=== PATIENT | male | born 1940 | race Caucasian/White ===

== ENCOUNTER 2019-07-03 20:15 | Inpatient (IN) | payer MEDICARE ==
--- NOTE | 2019-07-03 20:59 | RAD ---
Frontal radiograph right hip: 912 oh COMPARISON: None HISTORY: Fall, trauma, pain FINDINGS: There is an obliquely oriented fracture involving the proximal right femur. Distal fracture fragment is displaced medially by 1.9 cm. This fracture is located just inferior to the level of the lesser trochanter. IMPRESSION: Displaced obliquely oriented proximal right femoral shaft fracture.
--- NOTE | 2019-07-03 21:01 | RAD ---
Portable frontal chest radiograph: 07/03/2019 COMPARISON: 07/09/2016 HISTORY: Preoperative patient FINDINGS: Coarse increased linear interstitial density noted in the perihilar regions and both lung b ases suggesting chronic interstitial disease, similar when compared to the prior exam. No pneumothorax, pleural fluid, focal consolidation, or alveolar edema. There is a small hiatal hernia noted. There is elevation of the right hemidiaphragm and atherosclerot ic calcification of the aortic arch. IMPRESSION: Chronic findings as described above. No significant interval change.
--- NOTE | 2019-07-03 21:02 | RAD ---
Portable frontal chest radiograph: 07/03/2019 COMPARISON: None HISTORY: Injury, trauma, pain FINDINGS: There is an obliquely oriented displaced subtrochanteric fracture of the proximal right fem oral shaft. No additional fracture is evident on this exam. IMPRESSION: Proximal right femur fracture.
[2019-07-03 21:21] LABS: Hemoglobin 16.6 g/dL (14.0-18.0); Mean Corpuscular HGB CONC 33.2 g/dL (32.0-36.0); Mean Platelet Volume 7.5 fL (7.4-10.4); Platelet Count 168 thou/uL (130-400); RBC Distribution Width 11.6 % (11.5-14.5); Red Blood Cell (RBC) Count 4.89 mill/uL (4.70-6.10); White Blood Cell (WBC) Count 13.3 thou/uL (4.8-10.8)
[2019-07-03] MEDS ORDERED: Dextrose 50% Abboject 50 ML SYRINGE SLOW IVP PRN (21:22)
[2019-07-03] MEDS ORDERED: Dextrose 5% in Water 1,000 ML IV PRN (21:22)
[2019-07-03] MEDS ORDERED: hydrALAZINE 20 MG/ML VIAL SLOW IVP PRN (21:22)
[2019-07-03] MEDS ORDERED: Ondansetron PF 4 MG/2 ML Vial IVP PRN (21:22)
[2019-07-03] MEDS ORDERED: traMADol HCl 50 MG TAB PO PRN ×2 (21:25)
[2019-07-03] MEDS ORDERED: Acetaminophen 500 MG TAB PO SCH (21:30)
[2019-07-03 21:34] LABS: Albumin 3.6 g/dL (3.4-4.8)
[2019-07-03 21:35] LABS: Calcium 8.7 mg/dL (7.8-10.44); Chloride 93 mmol/L (98-107); Potassium 4.8 mmol/L (3.5-5.1); Sodium 126 mmol/L (136-145)
[2019-07-03 21:36] LABS: Globulin 3.1 g/dL (2.4-3.5); Glucose 99 mg/dL (83-110); Protein, Total 6.7 g/dL (5.8-8.1)
[2019-07-03 21:38] LABS: Carbon Dioxide 16 mmol/L (23-31)
[2019-07-03 21:39] LABS: Alkaline Phosphatase 64 U/L (40-110)
[2019-07-03 21:40] LABS: BUN (Urea Nitrogen) 8 mg/dL (8.4-25.7); Calc. Creatinine Clearance 0 mL/min (70-130); Estimated GFR-MDRD 76
[2019-07-03 21:41] LABS: AST (SGOT) 60 U/L (5-34)
[2019-07-03 21:42] LABS: ALT (SGPT) 44 U/L (8-55); Magnesium 1.9 mg/dL (1.6-2.6)
[2019-07-03 21:48] LABS: Band 3 % (5-11); Lymphocytes 6 % (21-51); MDiff Complete? YES; Monocytes 3 % (0-10); Neutrophil 88 % (42-75)
--- NOTE | 2019-07-03 21:54 | RAD ---
Frontal and lateral imaging of right femur: 07/03/2019 COMPARISON: None HISTORY: Femur fracture FINDINGS: There is an obliquely oriented displaced and angulated fracture of the proximal right femor al shaft. There is posterior displacement and angulation as well as medial displacement and angulation. IMPRESSION: Acute fracture of the right proximal femoral shaft.
[2019-07-03 21:55] LABS: Anion Gap 22 mmol/L (10-20)
[2019-07-03] MEDS ORDERED: Oxazepam 10 MG CAP PO SCH (22:00)
[2019-07-03] MEDS ORDERED: PHOS-NAK 1 PKT PACK PO SCH (22:15)
[2019-07-03 22:22] LABS: Bilirubin Negative (Negative); Blood, Urine Trace (Negative); Clarity Clear (Clear); Glucose, Urine (Dipstick) Negative (Negative); Leukocyte Negative (Negative); Nitrite Negative (Negative); Protein, Urine (Dipstick) Negative (Neg-Trace); Urobilinogen 0.2 mg/dL (Less than 2)
[2019-07-03 22:26] LABS: INR-International Normal Ratio 0.9; Prothrombin Time 12.5 SEC (12.0-14.7)
[2019-07-03 22:28] LABS: Bacteria/HPF None Seen HPF (None Seen); RBC/HPF 0-3 HPF (0-3); Squamous Epithelial None Seen HPF (0-3); WBC/HPF 0-3 HPF (0-3)
[2019-07-03 22:31] LABS: PTT 24.8 SEC (22.9-36.1)
[2019-07-04] MEDS: Sodium Chloride 0.9% 1,000 ML IV SCH ×3 (00:15→17:37)
[2019-07-04] MEDS: Acetaminophen 500 MG TAB PO SCH ×5 (00:16→23:48)
[2019-07-04] MEDS: Morphine 2 MG/ML SYRINGE SLOW IVP PRN ×2 (00:16→09:29)
[2019-07-04] MEDS: Oxazepam 10 MG CAP PO SCH ×5 (00:16→21:50)
[2019-07-04 01:08] LABS: Amphetamine Not Detected (NotDetected); Barbiturates Screen Not Detected (NotDetected); Benzodiazepine Screen Not Detected (NotDetected); Cocaine Metabolite Screen Not Detected (NotDetected); Medtox Control Line Valid? VALID (VALID); Medtox Reader # READER 4; Methadone Not Detected (NotDetected); Methamphetamine Not Detected (NotDetected); Opiate Screen Not Detected (NotDetected); Oxycodone Screen Not Detected (NotDetected); Phencyclidine (PCP) Not Detected (NotDetected); THC/Cannabinoid Screen Not Detected (NotDetected); Tricyclic Screen Not Detected (NotDetected)
--- NOTE | 2019-07-04 01:10 | HP ---
TRAUMA SURGEON: Dr. Ramirez. CONSULTING PHYSICIAN: Dr. Cardona. HISTORY OF PRESENT ILLNESS: The patient is an 78-year-old male, who presented to the emergency department via EMS after a mechanical fall outside. The patient reports he was cleaning his truck, subsequently tripped over something and fell onto his right side. He has a right proximal shaft fracture of the femur. Upon my evaluation, the patient denied anticoagulation use and he denied hitting his head or loss of consciousness. He only complained of pain over the right proximal thigh. REVIEW OF SYSTEMS: All additional 10-point review of systems negative except as indicated above. PAST MEDICAL HISTORY: The patient has a history of hypertension and chronic alcohol abuse. PAST SURGICAL HISTORY: He has had a hernia repair and spinal surgeries. SOCIAL HISTORY: The patient lives at home alone. He does not use any assistive devices to get around. He chews tobacco. He drinks alcohol daily. He denies any drug use. The patient is very dirt appearing. He reports he has help from his daughter at home and does not have difficulties taking care of himself. MEDICATIONS: The patient reports taking medications for hypertension in the morning and in the evening, but does not remember the medications. We will contact [facility] in [place] tomorrow to complete medical record. ALLERGIES: PENICILLIN. PHYSICAL EXAMINATION: VITAL SIGNS: Patient is afebrile and hemodynamically stable. He is on 2 L nasal cannula, saturating above 92% oxygen. PRIMARY SURVEY: Airway intact. Adequate breath sounds bilaterally. 2+ pulses in bilateral radials, femorals, and DPs. GCS 15. Gross motor and sensation are intact. No lacerations bruising or external bleeding. There is obvious deformity to the right proximal thigh. SECONDARY SURVEY: HEAD: Normocephalic and atraumatic. No gross palpable skull deformities or tenderness. EYES: Pupils 3 to 2, equal, round, reactive to light bilaterally. C-SPINE: No step-offs or deformities, nontender. C-collar not in place. CHEST: Nontender. No crepitus. No abrasions or ecchymosis. Equal chest movement. ABDOMEN: Soft, nontender, nondistended. PELVIS: Stable to palpation. Nontender. No abrasions or ecchymosis. RECTAL: Deferred. GENITOURINARY: Deferred. EXTREMITIES: The patient has some deformity to the right thigh. No abrasions or ecchymosis noted. 2+ pulses in bilateral radials, femorals, and DPs. BACK/SPINE: No step-offs, deformities, or tenderness to palpation of the thoracic or lumbar spine. No abrasions or ecchymosis noted. 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 Gross normal sensation x4 extremities. LABORATORY FINDINGS: White count 13.3, hemoglobin 16.6, hematocrit 50.0, platelets 168. INR 0.9. Sodium 126, potassium 4.8, chloride 93, bicarb 16, BUN 8, creatinine 0.96, glucose 99, phosphorus 3.0, magnesium 1.0. UA demonstrates no infection. Plasma alcohol is 63. DIAGNOSTIC FINDINGS: 1. X-ray of the right hip demonstrates displaced oblique oriented proximal right femoral shaft fracture. X-ray of the pelvis demonstrates proximal right femur fracture. 2. Chest x-ray demonstrates chronic findings as described above. No significant interval changes. 3. Femur x-ray on the right demonstrates acute fracture of the right proximal femoral shaft. ASSESSMENT: 1. Status post mechanical fall from standing. 2. Right proximal femoral shaft fracture. 3. Hyponatremia, likely chronic due to alcohol abuse. 4. History of hypertension and chronic alcohol abuse. PLAN: The patient will be admitted to the trauma surgical floor. He will be n.p.o. with normal saline at 100 an hour in preparation for the OR tomorrow with Dr. Cardona for fixation of his right femoral shaft fracture. He will receive both p.o. and IV pain medications. We will replace his phosphorus overnight. We will contact his pharmacy in the morning and complete his med rec. We will start his home medications as clinically indicated. Postoperatively, he will work with Physical and Occupational Therapy and likely need placement at acute rehab facility. This patient was discussed with Dr. Ramirez before this dictation. Job ID: [id number]
[2019-07-04 02:42] VITALS: BMI 16.0
[2019-07-04 06:48] LABS: #Eosinphils 0.1 thou/uL (0.0-0.7); #Lymphocytes 1.2 thou/uL (1.20-3.40); #Monocytes 0.8 thou/uL (0.11-0.59); #Neutrophils 7.9 thou/uL (1.40-6.50); %Basophils 0.2 % (0.0-1.0); %Eosinophils 0.6 % (0.0-10.0); %Lymphocytes 12.1 % (21.0-51.0); %Monocytes 8.2 % (0.0-10.0); %Neutrophils 78.9 % (42.0-75.0); Mean Corpuscular HGB CONC 34.2 g/dL (32.0-36.0); Mean Corpuscular Hemoglobin 34.2 pg (27.0-31.0); Mean Platelet Volume 7.6 fL (7.4-10.4); Platelet Count 181 thou/uL (130-400); RBC Distribution Width 11.5 % (11.5-14.5); Red Blood Cell (RBC) Count 4.37 mill/uL (4.70-6.10)
[2019-07-04 07:05] LABS: Anion Gap 17 mmol/L (10-20); BUN (Urea Nitrogen) 8 mg/dL (8.4-25.7); Calc. Creatinine Clearance 54 mL/min (70-130); Calcium 8.2 mg/dL (7.8-10.44); Carbon Dioxide 23 mmol/L (23-31); Chloride 94 mmol/L (98-107); Estimated GFR-MDRD Greater than 90; Glucose 95 mg/dL (83-110); Magnesium 1.9 mg/dL (1.6-2.6); Phosphorus 4.1 mg/dL (2.3-4.7); Potassium 5.1 mmol/L (3.5-5.1); Sodium 129 mmol/L (136-145)
[2019-07-04] MEDS ORDERED: Magnesium 2 GM/50 ML 2 GM in Premix Bag 1 BAG IVPB SCH (08:00)
[2019-07-04] MEDS ORDERED: Magnesium Sulfate 2 GM in Sodium Chloride 0.9% 100 ML IVPB SCH (08:00)
[2019-07-04] MEDS ORDERED: Senokot S 8.6-50 MG TAB PO SCH (09:00)
[2019-07-04] MEDS ORDERED: Prevnar 13-Val Conj/PF 0.5 ML SYRINGE IM ONE (09:00)
[2019-07-04] MEDS ORDERED: Multivitamin W/ Minerals 1 TAB PO SCH (09:00)
[2019-07-04] MEDS ORDERED: FLU VACC TS2019-20(65YR UP)/PF 180 MCG/0.5 ML SYRINGE IM ONE (09:00)
[2019-07-04] MEDS: Thiamine 100 MG TAB PO SCH ×2 (09:20→09:49)
[2019-07-04] MEDS: Folic Acid 1 MG TAB PO SCH (09:23)
[2019-07-04] MEDS: Famotidine 20 MG TAB PO SCH ×3 (09:23→21:50)
[2019-07-04] MEDS: Bisoprolol Fumarate/HCTZ 10 mg/6.25 mg Tablet PO SCH ×2 (09:23→09:47)
[2019-07-04] MEDS: Polyethylene Glycol 3350 17 GM Packet PO SCH (09:48)
[2019-07-04] MEDS ORDERED: PHENYLEPHRINE-NS 100 MCG/ML 10 ML SYRINGE ONE (10:03)
[2019-07-04] MEDS ORDERED: PROPOFOL 200 MG/20 ML VIAL ONE (10:03)
[2019-07-04] MEDS ORDERED: Succinylcholine Chloride 20 MG/ML 10 ml SYRINGE FS ONE ×2 (10:03→16:52)
[2019-07-04] MEDS ORDERED: EPHEDRINE 25 MG/5 ML SYRINGE ONE (10:03)
[2019-07-04] MEDS ORDERED: Dexamethasone 20 MG/5 ML VIAL ONE (10:03)
[2019-07-04] MEDS ORDERED: Ondansetron PF 4 MG/2 ML Vial ONE (10:03)
[2019-07-04] MEDS ORDERED: Lidocaine 1% PF 5 ML VIAL ONE (10:03)
[2019-07-04] MEDS ORDERED: Glycopyrrolate 0.2 MG/ML 5 ML SYRINGE ONE (10:03)
[2019-07-04] MEDS: traMADol HCl 50 MG TAB PO SCH ×2 (10:39→17:00)
[2019-07-04] MEDS ORDERED: Clindamycin/D5W 900 mg/50 ml Premix Bag ONE (12:19)
[2019-07-04] MEDS ORDERED: Fentanyl 100 MCG/2 ML VIAL ONE (12:36)
[2019-07-04] MEDS ORDERED: Phenylephrine 10 MG/ML VIAL ONE (13:24)
--- NOTE | 2019-07-04 13:31 | PRG ---
DATE OF SERVICE: 07/04/2019 SUBJECTIVE: The patient remains on the surgical floor, status post ground level fall. The patient sustained a right proximal femoral shaft fracture. The patient has been n.p.o. over midnight and is pending repair with Dr. Cardona. The patient reports he has some moderate amount of pain currently. The pain is worse with movement. OBJECTIVE: VITAL SIGNS: Temperature 98.1, pulse 57, respirations 15, SpO2 of 99% on 1 L nasal cannula, blood pressure 147/81. GENERAL: Elderly male, sitting up in hospital bed, in no acute distress. RESPIRATORY: Equal chest rise and fall. Bilateral breath sounds clear. EXTREMITIES: Moves all extremities. No deficits. Distal pulses intact. No gross edema. LABORATORY DATA: WBC 10.0, RBC 4.37, hemoglobin 15.0, hematocrit 43.8, MCV 100, MCH 34.2. Sodium 129, potassium 5.1, chloride 91, BUN 8, creatinine 0.80, estimated GFR greater than 90, glucose 95, calcium 8.2, phosphorus 3.1, magnesium 1.9. Urinalysis; negative bacteria, negative wbc's, trace blood. Serum drug screen negative. ASSESSMENT: 1. Status post mechanical fall from standing. 2. Right proximal femoral shaft fracture. 3. Hyponatremia, likely chronic due to alcohol abuse. 4. History of hypertension and chronic alcohol abuse. PLAN: Continue n.p.o. status and IV maintenance fluids, normal saline at 100 an hour. The patient is planning to go to the OR this morning. Replace electrolytes. PT and OT to evaluate and treat postop. The patient will also be started on a regular diet with [employer] Ensure b.i.d. postop. A rehab screen has been placed. The patient was examined by Dr. Teran during morning rounds. We will schedule the patient's tramadol as he is having moderate amount of pain. Continue free water restriction to 1 L a day. The patient may have unlimited Gatorade postop. Job ID: [id number]
[2019-07-04] MEDS ORDERED: Bupivacaine PF 0.5% 30 ML VIAL ONE (14:20)
[2019-07-04] MEDS ORDERED: Lidocaine 1% w/Epinephrine 1:100K 20 ML VIAL ONE (14:20)
[2019-07-04] MEDS ORDERED: Cepastat Lozenges 1 LOZ PO PRN (14:36)
[2019-07-04] MEDS ORDERED: Fleet Enema 133 ML BOT PR PRN (14:36)
[2019-07-04] MEDS ORDERED: Ondansetron PF 4 MG/2 ML Vial IVP PRN (14:36)
[2019-07-04] MEDS ORDERED: Milk Of Magnesia 30 ML UDCUP PO PRN (14:36)
[2019-07-04] MEDS ORDERED: Ondansetron ODT 4 MG TAB PO PRN (14:36)
[2019-07-04] MEDS ORDERED: Bisacodyl 10 MG SUPP PR PRN (14:36)
[2019-07-04] MEDS ORDERED: traMADol HCl 50 MG TAB PO PRN (14:36)
[2019-07-04] MEDS ORDERED: HYDROmorphone 2 MG/ML VIAL SLOW IVP PRN (14:46)
[2019-07-04] MEDS ORDERED: Promethazine HCl 25 MG/ML VIAL SLOW IVP PRN (14:46)
[2019-07-04] MEDS ORDERED: Promethazine HCl 25 MG/ML VIAL IM PRN (14:46)
[2019-07-04] MEDS ORDERED: Ondansetron HCl/PF 4 MG/2 ML Vial IVP PRN (14:46)
--- NOTE | 2019-07-04 14:55 | RAD ---
RIGHT FEMUR 2 VIEWS: INDICATION: Status post trauma and right femur injury. FINDINGS: There has been interval placement of a long cephalomedullary device transfixing the patient 's proximal right femur fracture. There are 2 separate interlocking screws involving the distal right femur. Fracture alignment is near anatomic. The hardware projects in expected position. There a re scattered vascular calcifications. There is soft tissue gas within the adjacent right hip likely related to post procedural change. There is diffuse osteopenia. IMPRESSION: Postoperative right femur. Transcribed Date/Time: 07/04/2019 2:58 PM
--- NOTE | 2019-07-04 15:07 | OP ---
DATE OF PROCEDURE: 07/04/2019 PREOPERATIVE DIAGNOSIS: Displaced spiral fracture of the right proximal femoral shaft. POSTOPERATIVE DIAGNOSIS: Displaced spiral fracture of the right proximal femoral shaft. PROCEDURE PERFORMED: Interlocking intramedullary rodding of the right femur. ANESTHESIA: General. DESCRIPTION OF PROCEDURE: The patient was given preoperative IV antibiotics, taken to the operating room, and placed in supine position on the fracture table. Satisfactory general anesthesia was performed. The patient was then placed in traction on the fracture table with all bony prominences in the right foot and ankle well-padded. C-arm verified good alignment of the spiral fracture of the right femoral shaft fracture. The lateral aspect of the right hip and thigh was then sterilely prepped and draped. A longitudinal incision was made approximately 2 inches proximal to the greater trochanter. The incision itself was 1.5 inches in length. Under fluoroscopic visualization, a guide pin was placed through the area of the greater trochanter and piriformis fossa and the fracture was reduced and a guidewire was then placed into the area of the greater trochanter, crossing the spiral fracture and into the distal shaft. Appropriate length screw was measured and a [employer]ynthes 14-mm x 420 mm in length jania was inserted through a 1.5-inch incision on the lateral aspect of the thigh using the guide, that was still attached to the jania. A guide pin was placed through the jania into the femoral neck and into the head. The lateral cortex was over-reamed and a helical blade that was 95 mm in length was inserted into the jania and into the femoral neck and head and was locked into place. Through 2 small incisions in the lateral aspect of the distal thigh, two 5.0 mm locking screws were inserted into the distal femur as well as the intramedullary jania and this again was all verified with fluoroscopy using the C-arm. This showed good placement of the helical blade, the locking screws, and the jania. The wounds were then copiously irrigated with antibiotic solution. They were closed using #2 Vicryl for the iliotibial band, 0 Vicryl for the fat and subcutaneous tissue, and the skin was closed with skin nafisa. Sterile dressing was applied. The patient was taken off the fracture table, was awakened, extubated, and transferred to recovery room in stable condition. ESTIMATED BLOOD LOSS: 100 mL. COMPLICATIONS: None. Job ID: [id number]
[2019-07-04] MEDS ORDERED: Naloxone HCl 0.4 mg/ml Vial ONE (15:30)
[2019-07-04] MEDS ORDERED: Ventilator Sedation Protocol 1 EACH FS ONE (15:34)
[2019-07-04 15:56] LABS: Actual Bicarbonate (HCO3a) 25.4 mEq/L (22-28); CO2 Tension 44.2 mmHg (35.0-45.0); O2 Tension (PaO2) 128.9 mmHg (> 60.0); pH, Arterial 7.38 (7.35-7.45)
--- NOTE | 2019-07-04 15:56 | RAD ---
XR Chest 1 View HISTORY: Respiratory failure COMPARISON: 07/03/2019 FINDINGS: There is been interval placement of an endotracheal tube tip just below the level of the cl avicular heads. No pneumothoraces or large effusions are seen. No lobar consolidation is identified. There is continued elevation of the right hemidiaphragm. Chronic parenchymal changes are again seen.
[2019-07-04 15:57] LABS: Carboxyhemoglobin (COHb) 1.7 gm% (0.0-3.0); Hemoglobin (Hb) 13.9 g/dL (14.0-18.0)
[2019-07-04 15:58] LABS: Potassium - ABG Lab 3.67 mmol/L (3.70-5.30)
[2019-07-04 15:59] LABS: Puncture Site LB
[2019-07-04] MEDS ORDERED: Midazolam HCl 2 mg/2 ml Vial ONE (16:09)
--- NOTE | 2019-07-04 16:33 | CT ---
CT BRAIN WITHOUT CONTRAST: HISTORY:Altered mental status COMPARISON:None FINDINGS: There are foci of decreased attenuation in the periventricular white matter, consistent with chronic small vessel ischemic disease. 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 No evidence of acute infarct, hemorrhage, midline shift or abnormal extra-axial fluid collections is seen. The ventricular size is appropriate and the basilar cisterns are patent. The bony calvarium is intact. The mastoid air cells are well aerated.There is mild mucosal disease in the paranasal sinuses. IMPRESSION: No CT evidence of acute intracranial process.
[2019-07-04] MEDS ORDERED: Morphine 2 MG/ML SYRINGE SLOW IVP PRN (17:02)
[2019-07-04] MEDS ORDERED: Propofol BOLUS 1,000 MG/100 ML VIAL IV PRN (17:02)
[2019-07-04] MEDS ORDERED: Fentanyl BOLUS 250 ML IVPB PRN (17:02)
[2019-07-04] MEDS ORDERED: Lorazepam 2 MG/ML VIAL SLOW IVP PRN (17:02)
[2019-07-04] MEDS ORDERED: fentaNYL Citrate/PF 2,000 MCG in Sodium Chloride 0.9% 60 ML IV SCH (17:02)
[2019-07-04] MEDS ORDERED: DISCONTINUE PREVIOUS NARCOTIC PAIN MEDICATIONS AND BENZODIAZEPINES FS SCH (17:02)
[2019-07-04] MEDS ORDERED: Propofol 1,000 MG/100 ML VIAL IV PRN (17:02)
[2019-07-04] MEDS: Clindamycin/D5W 900 MG in Premix Bag 1 BAG IVPB SCH ×2 (17:36→23:44)
[2019-07-04 19:12] LABS: CKMB 3.1 ng/mL (0-6.6)
[2019-07-04] MEDS ORDERED: cloNIDine 0.1 MG TAB PO SCH ×2 (21:00→23:30)
[2019-07-04] MEDS ORDERED: Sodium Chloride 0.9% 500 ML IV SCH (21:30)
[2019-07-04] MEDS: Senokot S 8.6-50 MG TAB PO SCH (21:50)
[2019-07-04] MEDS: Aspirin 325 MG TAB PO SCH (21:50)
[2019-07-04] MEDS ORDERED: Hydrocortisone Sod Succ/PF 100 mg/2 ml Vial IVP SCH ×2 (23:00)
--- NOTE | 2019-07-04 23:54 | PRG ---
DATE OF SERVICE: 07/04/2019 SUBJECTIVE: The patient was seen this evening postop. The patient was reintubated in the PACU for acute postoperative respiratory failure. Upon my evaluation, he is awake and alert and follows commands. He is little bit anxious and we are working to find a happy medium for his sedation. Nursing reported decreased urinary output since he has been back as well as associated hypotension. He did receive a 500 mL bolus of IV fluid at that time. Also, cortisol level was drawn. OBJECTIVE: VITAL SIGNS: The patient is afebrile. Pulse 88, respirations 18, oxygen saturation 100% on the ventilator, blood pressure 107/64. GENERAL: Elderly male, lying in CCU bed, intubated and sedated with no signs of acute distress. PULMONARY: Equal chest rise and fall. Clear breath sounds bilaterally. No signs of acute respiratory distress. ABDOMEN: Soft, nontender, and nondistended. EXTREMITIES: 2+ pulses in all extremities. Gross motor and sensation intact. No significant swelling noted. NEUROLOGIC: GCS is 11T. ASSESSMENT: 1. Status post mechanical fall from standing. 2. Right proximal femoral shaft fracture, status post repair. 3. Hyponatremia, improving. 4. Acute alcohol intoxication, resolving. 5. Postoperative respiratory failure, status post intubation. 6. History of alcohol abuse and hypertension. 7. Acute adrenal insufficiency. PLAN: Continue n.p.o. Continue normal saline at 100 an hour. Continue propofol and fentanyl drips. The patient received 100 mg of IV hydrocortisone and he will receive 50 mg q.6 hours for acute adrenal insufficiency. We will closely monitor his hemodynamics and his blood pressure and his urinary output. He may require further fluid resuscitation. If the patient is resistant to fluid resuscitation, we will complete blood work and consider other causes such as bleeding or sepsis. At this time, we will continue to monitor him closely. Job ID: [id number]
[2019-07-05] MEDS ORDERED: Sodium Chloride 0.9% 500 ML IV SCH ×2 (01:15→10:00)
[2019-07-05 04:19] LABS: Anion Gap 12 mmol/L (10-20); BUN (Urea Nitrogen) 11 mg/dL (8.4-25.7); Calc. Creatinine Clearance 52 mL/min (70-130); Calcium 7.6 mg/dL (7.8-10.44); Carbon Dioxide 23 mmol/L (23-31); Chloride 102 mmol/L (98-107); Estimated GFR-MDRD 88; Glucose 133 mg/dL (83-110); Magnesium 1.7 mg/dL (1.6-2.6); Potassium 4.4 mmol/L (3.5-5.1); Sodium 133 mmol/L (136-145)
[2019-07-05 04:20] LABS: Phosphorus 2.9 mg/dL (2.3-4.7)
[2019-07-05] MEDS: Oxazepam 10 MG CAP PO SCH ×3 (06:15→22:15)
[2019-07-05] MEDS: Acetaminophen 500 MG TAB PO SCH ×3 (06:15→17:39)
[2019-07-05] MEDS: Hydrocortisone Sod Succ/PF 100 mg/2 ml Vial IVP SCH ×4 (06:16→22:15)
[2019-07-05] MEDS: Sodium Chloride 0.9% 1,000 ML IV SCH ×3 (06:16→22:02)
[2019-07-05 06:43] LABS: Hemoglobin 12.1 g/dL (14.0-18.0); Mean Corpuscular HGB CONC 33.7 g/dL (32.0-36.0); Mean Corpuscular Hemoglobin 34.7 pg (27.0-31.0); Mean Platelet Volume 7.8 fL (7.4-10.4); Platelet Count 164 thou/uL (130-400); RBC Distribution Width 11.5 % (11.5-14.5); White Blood Cell (WBC) Count 10.1 thou/uL (4.8-10.8)
[2019-07-05 07:31] LABS: Band 8 % (5-11); Lymphocytes 5 % (21-51); MDiff Complete? YES; Monocytes 5 % (0-10); Myelocyte 1 % (0-0); Neutrophil 81 % (42-75); Platelet Morphology Comment Appears Adequate; Polychromasia SLIGHT = 2-3 cells (100X) (0-2/hpf)
--- NOTE | 2019-07-05 07:37 | RAD ---
Chest one view HISTORY: Dyspnea. Intubated. Follow-up. COMPARISON: 07/04/2019. FINDINGS: Cardiac silhouette is magnified by projection. Pulmonary vasculature is unremarkable. Mediastinum is midline allowing for leftward rotation of the patient. Endotracheal catheter is in goo d position. Nasogastric tube is coiled over a hiatal hernia. The lungs remain hyperinflated with parenchymal scarring at each lung base. IMPRESSION: Interval placement of a nasogastric tube, coiled within a hiatal hernia. Other findings are stable, including bibasilar parenchymal scarring.
[2019-07-05] MEDS: Ferrous Gluconate 324 MG TAB PO SCH ×2 (08:39→22:04)
[2019-07-05] MEDS: Senokot S 8.6-50 MG TAB PO SCH ×2 (08:40→22:04)
[2019-07-05] MEDS: Famotidine 20 MG TAB PO SCH ×2 (08:40→22:04)
[2019-07-05] MEDS: Folic Acid 1 MG TAB PO SCH (08:41)
[2019-07-05] MEDS: Thiamine 100 MG TAB PO SCH (08:41)
[2019-07-05] MEDS: Multivitamin W/ Minerals 1 TAB PO SCH (08:41)
[2019-07-05] MEDS: Aspirin 325 MG TAB PO SCH (08:41)
[2019-07-05] MEDS: Polyethylene Glycol 3350 17 GM Packet PO SCH (08:41)
[2019-07-05] MEDS ORDERED: Sodium Phosphate 20 MMOL, Magnesium Sulfate 2 GM in Sodium Chloride 0.9% 250 ML 250 ML IVPB SCH (09:00)
[2019-07-05] MEDS ORDERED: Bisoprolol Fumarate/HCTZ 10 mg/6.25 mg Tablet PO SCH (09:00)
[2019-07-05] MEDS ORDERED: traMADol HCl 50 MG TAB PO PRN (11:04)
--- NOTE | 2019-07-05 19:16 | PRG ---
DATE OF SERVICE: 07/05/2019 SUBJECTIVE: Mr. Hurley is an 78-year-old male with status post mechanical fall. He sustained right proximal femoral shaft fracture status post ORIF of right femoral shaft fracture yesterday. The patient suffered from respiratory distress after extubation from PACU. The patient has been re-intubated. Last night, the patient is doing good. He is alert and awake and follows commands. Vital signs are stable; however, his urine output is in low, for which he was treated with 500 normal saline bolus. This morning, the patient's urine output is improved to 100ml an hour this afternoon. The patient's kidney function is still normal. Echocardiogram is in normal limits. OBJECTIVE: GENERAL: Currently, the patient is on ventilation. The patient is alert and awake when sedation turned down, follows command. GCS 11t. VITAL SIGNS: Temperature 98.2, heart rate 53, respiratory rate 14, blood pressure 115/55, and SpO2 100 on FiO2 40%. LUNGS: Clear bilaterally. HEART: Regular rate and rhythm. ABDOMEN: Soft and nondistended. EXTREMITIES: The patient is able to move all 4 extremities. Pulse positive bilaterally. LABORATORY DATA: White count 10.1 and hemoglobin 12.1. Sodium 133, potassium 4.4, creatinine 0.84, magnesium 1.7, and cortisone level 11.8. ASSESSMENT: 1. Status post ground-level fall. 2. Right proximal femoral shaft fracture, status post open reduction and internal fixation of right proximal femoral shaft fracture. 3. acute respiratory distress, on ventilation, stable. 4. History of alcohol abuse and hypertension, stable. 5. Acute adrenal insufficiency, stable. PLAN: We will continue supportive care. Continue pain control. The patient will be on the ventilation overnight tonight. Consider weaning ventilation tomorrow. Job ID: [id number] MTDD
[2019-07-05] MEDS: cloNIDine 0.1 MG TAB PO SCH (22:04)
[2019-07-05] MEDS: Enoxaparin Sodium 40 MG/0.4 ML SYRINGE SC SCH (22:04)
[2019-07-06] MEDS: Acetaminophen 500 MG TAB PO SCH ×5 (00:05→23:54)
--- NOTE | 2019-07-06 03:29 | PRG ---
DATE OF SERVICE: HISTORY: Patient remains in the critical care unit. He is status post ground level fall in which he sustained a right femoral shaft fracture in which he underwent open reduction internal fixation. The patient was extubated, moved to the PACU, where he required re-intubation. The patient was left on the ventilator overnight and throughout today and tonight as he was not ready for extubation. According to report, he should be able to be extubated tomorrow. When his sedation is off, he is alert and follows commands. PHYSICAL EXAMINATION: VITAL SIGNS: Stable with the exception of the patient is bradycardic at a rate of 45 to 55. He does slightly higher than that when he is stimulated. His blood pressure remained stable. GENERAL: The patient is resting comfortably in the bed. He appears in no distress. Respirations are nonlabored. LUNGS: Clear bilaterally. HEART: Bradycardic with Regular rhythm. ABDOMEN: Soft with active bowel sounds. EXTREMITIES: Capillary refill is less than 3 seconds. Pulses are equal bilaterally. ASSESSMENT/PLAN: 1. Status post ground level fall. 2. Status post open reduction internal fixation of right femoral shaft fracture. 3. Acute respiratory distress, postoperative, on ventilator, stable. 4. History of alcohol abuse and hypertension, stable. 5. Acute adrenal insufficiency, stable. PLAN: Plan will be to continue supportive care, likely wean from the ventilator tomorrow and begin working with Physical and Occupational Therapy and work on placement. Job ID: [id number]
[2019-07-06 04:41] LABS: #Lymphocytes 0.6 thou/uL (1.20-3.40); #Monocytes 0.5 thou/uL (0.11-0.59); #Neutrophils 7.6 thou/uL (1.40-6.50); %Basophils 0.3 % (0.0-1.0); %Eosinophils 0.1 % (0.0-10.0); %Lymphocytes 7.2 % (21.0-51.0); %Monocytes 5.2 % (0.0-10.0); %Neutrophils 87.2 % (42.0-75.0); Hemoglobin 9.6 g/dL (14.0-18.0); Mean Corpuscular Hemoglobin 35.5 pg (27.0-31.0); Mean Platelet Volume 8.2 fL (7.4-10.4); Platelet Count 145 thou/uL (130-400); RBC Distribution Width 11.5 % (11.5-14.5); White Blood Cell (WBC) Count 8.7 thou/uL (4.8-10.8)
[2019-07-06 04:58] LABS: Phosphorus 2.6 mg/dL (2.3-4.7)
[2019-07-06 05:05] LABS: Anion Gap 8 mmol/L (10-20); BUN (Urea Nitrogen) 9 mg/dL (8.4-25.7); Calc. Creatinine Clearance 59 mL/min (70-130); Calcium 7.6 mg/dL (7.8-10.44); Carbon Dioxide 25 mmol/L (23-31); Chloride 106 mmol/L (98-107); Estimated GFR-MDRD Greater than 90; Glucose 115 mg/dL (83-110); Magnesium 2.3 mg/dL (1.6-2.6); Potassium 3.2 mmol/L (3.5-5.1); Sodium 136 mmol/L (136-145)
[2019-07-06] MEDS: Hydrocortisone Sod Succ/PF 100 mg/2 ml Vial IVP SCH (05:46)
[2019-07-06] MEDS: Oxazepam 10 MG CAP PO SCH ×3 (05:46→20:32)
[2019-07-06] MEDS ORDERED: Potassium Chloride 40 MEQ in Sodium Chloride 0.9% 250 ML 250 ML IVPB SCH (07:00)
[2019-07-06] MEDS: Polyethylene Glycol 3350 17 GM Packet PO SCH (08:07)
[2019-07-06] MEDS: Ferrous Gluconate 324 MG TAB PO SCH ×3 (08:08→22:45)
[2019-07-06] MEDS: Folic Acid 1 MG TAB PO SCH (08:08)
[2019-07-06] MEDS: Senokot S 8.6-50 MG TAB PO SCH ×3 (08:08→22:23)
[2019-07-06] MEDS: Thiamine 100 MG TAB PO SCH (08:09)
[2019-07-06] MEDS: Famotidine 20 MG TAB PO SCH ×3 (08:09→22:23)
[2019-07-06] MEDS: Multivitamin W/ Minerals 1 TAB PO SCH (08:09)
[2019-07-06] MEDS ORDERED: Amlodipine 10 MG TAB PO SCH ×2 (09:00)
[2019-07-06] MEDS: Sodium Chloride 0.9% 1,000 ML IV SCH (10:52)
--- NOTE | 2019-07-06 11:23 | PRG ---
DATE OF SERVICE: 07/05/2019 This is Clint Monsalve PA-C dictating a report for Dr. Teran. SUBJECTIVE: Mr. Hurley is an 78-year-old male, status post mechanical fall. He sustained right proximal femur shaft fracture, status post intramedullary rodding of the right femur fracture. The patient tolerated the procedure well. However, he has developed shortness of breath after extubation from PACU. He has been re-intubated and been following up yesterday in ICU. The patient has been doing good. Vital signs are stable. He was treated with hydrocortisone and his blood pressure was trending up yesterday. He is alert and awake, and follows commands with the low dose of sedation. He is cooperating with ventilation machine. Urine output is adequate. This morning on round , Dr. Teran weaned and extubated the patient. The patient tolerated the extubation well. OBJECTIVE: GENERAL: Currently, post extubation, the patient is doing good. Alert and awake. GCS 15. VITAL SIGNS: Temperature 98.8, heart rate 52, respiratory rate 18, O2 saturation 100, and blood pressure 171/76. LUNGS: Clear bilaterally. HEART: Regular rate and rhythm. ABDOMEN: Soft and nondistended. EXTREMITIES: Neurovascularly intact x4. Postop dressing clean, dry, and intact. NEUROLOGIC: No focal neurologic deficits. LABORATORY DATA: Showed white count 8.7, hemoglobin dropped to 9.6. Chemistry; sodium 136, potassium 3.2, creatinine 0.74, phosphorus 2.6. ASSESSMENT: 1. Status post ground level fall. 2. Right proximal femur fracture, status post intramedullary nail of right femur shaft fracture, postop day 2. 3. Acute respiratory distress, on ventilation, already extubated successfully. 4. Adrenal insufficiency, improved. 5. History of alcohol abuse and hypertension, stable. PLAN: We will continue supportive care, continue pain control. We will initiate a fluid diet and advance as tolerated. Discontinue Byers catheter and initiate pain regimen. The patient will be working with Physical Therapy and Occupational Therapy, and anticipate placement in fpc facility or rehabilitation facility. Anticipate transfer to the floor today. The patient was seen and evaluated with Dr. Teran on round this morning. Job ID: [id number] MTDD
--- NOTE | 2019-07-06 17:03 | PRG ---
DATE OF SERVICE: 07/06/2019 SUBJECTIVE: The patient was extubated by Dr. Teran this morning. He has done very well with that. The nurses report that he has been very stable and lucid. He has been conversing. He was able to work with physical therapy and take some steps today. OBJECTIVE: VITAL SIGNS: The patient has been afebrile. Last blood pressure was 107/81, heart rate 90. LABORATORY DATA: His laboratory this morning show hemoglobin 9.6 and hematocrit 27.4. ASSESSMENT AND PLAN: Dressings were changed, and the incisions over the right hip and thigh are healing well. The patient, as far as Orthopedics concern, can be transferred from ICU to surgical floor. Continue to work with Physical and Occupational Therapy. He may weightbear as tolerated on the right lower extremity. Job ID: [id number]
[2019-07-06] MEDS: Ferrous Sulfate 325 MG TAB PO SCH (18:02)
[2019-07-06] MEDS: Enoxaparin Sodium 40 MG/0.4 ML SYRINGE SC SCH (20:32)
[2019-07-06] MEDS: Ascorbic Acid 500 mg Chewable Tablet PO SCH ×2 (20:32→22:23)
[2019-07-06] MEDS: cloNIDine 0.1 MG TAB PO SCH (20:32)
[2019-07-07] MEDS ORDERED: Temazepam 15 MG CAP PO PRN (00:53)
[2019-07-07] MEDS ORDERED: Melatonin 3 MG TAB PO PRN (00:53)
--- NOTE | 2019-07-07 00:54 | PRG ---
DATE OF SERVICE: 07/06/2019 SUBJECTIVE: The patient is currently on the surgical floor. He was moved up from the critical care unit today after he was found to be stable after extubation. The patient is status post ground level fall in which he sustained a right femoral shaft fracture. He has undergone open reduction and internal fixation of same, which he tolerated the procedure well, though had to be reintubated in the PACU. He has since been extubated, moved to the surgical floor. He worked with Physical and Occupational Therapy today. His pain is controlled, and he is tolerating a diet. The nurses report no issues. He is awaiting placement likely to a skilled facility, but it has not been determined yet. PHYSICAL EXAMINATION: VITAL SIGNS: Stable. The patient is afebrile. GENERAL: The patient is resting comfortably in bed. He was asleep when I walked in, but awakened briefly to tell me that he was not hurting or having any issues. LUNGS: His respirations appeared nonlabored. EXTREMITIES: He was moving all 4 extremities. His postop dressing is clean, dry, and intact. ASSESSMENT: 1. Status post ground level fall. 2. Status post open reduction and internal fixation of right femoral shaft fracture. 3. Status post acute respiratory distress, postoperative, requiring re-intubation, resolved. 4. History of alcohol abuse and hypertension, stable. 5. Acute adrenal insufficiency, stable. PLAN: To continue supportive care. Encourage physical and occupational therapy. The patient was reportedly very sleepy today, so we will adjust his Serax timing. Job ID: [id number]
[2019-07-07] MEDS: Acetaminophen 500 MG TAB PO SCH ×3 (05:16→17:41)
[2019-07-07 05:17] LABS: #Lymphocytes 1.1 thou/uL (1.20-3.40); #Monocytes 0.4 thou/uL (0.11-0.59); #Neutrophils 5.8 thou/uL (1.40-6.50); %Basophils 0.2 % (0.0-1.0); %Eosinophils 0.4 % (0.0-10.0); %Lymphocytes 14.6 % (21.0-51.0); %Monocytes 5.5 % (0.0-10.0); %Neutrophils 79.3 % (42.0-75.0); Hemoglobin 10.3 g/dL (14.0-18.0); Mean Corpuscular HGB CONC 34.2 g/dL (32.0-36.0); Mean Corpuscular Hemoglobin 35.2 pg (27.0-31.0); Mean Platelet Volume 7.3 fL (7.4-10.4); Platelet Count 186 thou/uL (130-400); RBC Distribution Width 11.5 % (11.5-14.5); Red Blood Cell (RBC) Count 2.93 mill/uL (4.70-6.10); White Blood Cell (WBC) Count 7.3 thou/uL (4.8-10.8)
[2019-07-07 05:37] LABS: Anion Gap 9 mmol/L (10-20); BUN (Urea Nitrogen) 10 mg/dL (8.4-25.7); Calc. Creatinine Clearance 59 mL/min (70-130); Calcium 8.1 mg/dL (7.8-10.44); Carbon Dioxide 30 mmol/L (23-31); Chloride 106 mmol/L (98-107); Estimated GFR-MDRD Greater than 90; Glucose 83 mg/dL (83-110); Magnesium 2.3 mg/dL (1.6-2.6); Potassium 3.1 mmol/L (3.5-5.1); Sodium 142 mmol/L (136-145)
[2019-07-07 05:38] LABS: Phosphorus 1.4 mg/dL (2.3-4.7)
[2019-07-07] MEDS ORDERED: Potassium Phosphate 30 MMOL in Sodium Chloride 0.9% 250 ML 250 ML IVPB SCH (06:00)
[2019-07-07] MEDS: Ferrous Sulfate 325 MG TAB PO SCH ×2 (08:29→17:41)
[2019-07-07] MEDS: Senokot S 8.6-50 MG TAB PO SCH ×2 (08:29→19:50)
[2019-07-07] MEDS: Folic Acid 1 MG TAB PO SCH (08:29)
[2019-07-07] MEDS: Oxazepam 10 MG CAP PO SCH ×2 (08:30→19:50)
[2019-07-07] MEDS: Amlodipine 5 MG TAB PO SCH (08:30)
[2019-07-07] MEDS: Polyethylene Glycol 3350 17 GM Packet PO SCH (08:31)
[2019-07-07] MEDS: Famotidine 20 MG TAB PO SCH ×2 (08:31→19:50)
[2019-07-07] MEDS: Ascorbic Acid 500 mg Chewable Tablet PO SCH ×2 (08:31→19:49)
[2019-07-07] MEDS: Thiamine 100 MG TAB PO SCH (08:31)
[2019-07-07] MEDS ORDERED: Bisacodyl 10 MG SUPP PR SCH (08:45)
[2019-07-07 12:23] LABS: Anion Gap 12 mmol/L (10-20); BUN (Urea Nitrogen) 11 mg/dL (8.4-25.7); Calc. Creatinine Clearance 59 mL/min (70-130); Calcium 8.2 mg/dL (7.8-10.44); Carbon Dioxide 30 mmol/L (23-31); Chloride 103 mmol/L (98-107); Estimated GFR-MDRD Greater than 90; Glucose 94 mg/dL (83-110); Potassium 3.6 mmol/L (3.5-5.1); Sodium 141 mmol/L (136-145)
--- NOTE | 2019-07-07 12:47 | PRG ---
DATE OF SERVICE: 07/07/2019 SUBJECTIVE: Mr. Hurley is an 78-year-old male, status post mechanical fall. He sustained right hip fracture, underwent intramedullary rodding of the right femur fracture. The patient was transferred from ICU yesterday. The patient has been doing good. He tolerated with his soft diet. His urine adequate and he has not yet have bowel. His vital signs are stable. OBJECTIVE: GENERA: Currently, the patient is awake and alert. GCS 15. VITAL SIGNS: Temperature 97.4, heart rate 89, respiratory rate 18, O2 saturations 97% on room air, blood pressure 139/74. LUNGS: Clear bilaterally. HEART: Regular rate and rhythm. ABDOMEN: Soft, nondistended. EXTREMITIES: Neurovascularly intact x4. NEUROLOGIC: No focal neurologic deficits. ASSESSMENT: 1. Status post ground level fall. 2. Right proximal femur fracture, status post intramedullary nail of right femur fracture, postop day 3. 3. Acute respiratory distress, resolved. 4. Renal insufficiency, improved. 5. History of alcohol abuse. 6. Hypertension, stable. PLAN: Continue supportive care. Continue pain control. Continue working with physical therapy and occupational therapy. Family wish to placement in [facility]. Continue DVT prophylaxis. Job ID: [id number]
--- NOTE | 2019-07-07 14:55 | PQF ---
CLINICAL DOCUMENTATION IMPROVEMENT CLARIFICATION FORM: ICD-10 Updated PLEASE DO AN ADDENDUM TO THE PROGRESS NOTE WITH ANY DOCUMENTATION UPDATES OR ADDITIONS AND CARRY THROUGH TO DC SUMMARY. THANK YOU. DATE: 07/07/2019 ATTN: Dr. Monsalve Please exercise your independent, professional judgment in responding to the clarification form. Clinical indicators are provided on the bottom of this form for your review Please check appropriate box(s): [ ] Acute respiratory failure due to an existing co-morbid condition: [ ] Acute on chronic respiratory failure due to an existing co-morbid condition : [ x ] Acute respiratory failure related to the surgical procedure [ ] Acute on chronic respiratory failure related to the surgical procedure [ ] Respiratory insufficiency due to an existing co-morbid condition: [ ] Respiratory insufficiency due to the surgical procedure [ ] Other diagnosis [ ] Unable to determine For continuity of documentation, please document condition throughout progress notes and discharge summary. Thank You. CLINICAL INDICATORS - SIGNS / SYMPTOMS / LAB / RESULTS AND LOCATION IN MR: 07/03 Nursing Post Anesthesia Care: Color evans unable to obtain sat, when able to get O2 sat 61 percent. Unresponsive 07/03 (Izaiah) The pt was reintubated in the PACU for acute postoperative respiratory failure. Nursing reported decreased urinary output since he has been back as well as associated hypotension. VS: pulse 88, resp. 18, oxygen sat 100% on the ventilator. BP 107/64 Assessment: Acute alcohol intoxication, resolving. Postoperative respiratory failure, s/p intubation Acute adrenal insufficiency 07/04 (Gricel) Acute respiratory distress, on ventilation, already extubated successfully. RISKS: H&P 07/02: R proximal femoral shaft fracture. Hx of HTN and chronic alcohol abuse. Operative Note 07/03: Procedure: Interlocking intramedullary rodding of the right femur. TREATMENT: Order 07/03 Resp: Vent continuous 07/03 (Izaiah) Plan: Continue NS at 100 an hour. The pt received 100 mg IV hydrocortisone and will receive 50 mg q 6 hrs for acute adrenal insufficiency Thank you, Marianne (This form is maintained as a part of the permanent medical record) 2015 [employer], [employer]. All Rights Reserved Marianne Wolfe RN, BSN [email or web address] Office: [phone] [facility]
[2019-07-07] MEDS ORDERED: Potassium Phosphate 15 MMOL in Sodium Chloride 0.9% 250 ML 250 ML IVPB SCH (17:00)
[2019-07-07] MEDS: cloNIDine 0.1 MG TAB PO SCH (19:49)
[2019-07-07] MEDS: Enoxaparin Sodium 40 MG/0.4 ML SYRINGE SC SCH (19:50)
[2019-07-08] MEDS: Acetaminophen 500 MG TAB PO SCH ×3 (00:03→12:32)
--- NOTE | 2019-07-08 00:20 | PRG ---
DATE OF SERVICE: SUBJECTIVE: The patient is currently on the surgical floor. He is status post ground-level fall in which he underwent open reduction and internal fixation of a right femoral shaft fracture. Immediately postop, he required re-intubation and spent a night in the critical care unit. He was moved up yesterday from the critical care unit. He has not had any respiratory issues since. He has been able to work with physical and occupational therapy. His pain is controlled, and he is tolerating a diet. PHYSICAL EXAMINATION: VITAL SIGNS: Stable. The patient is afebrile. GENERAL: The patient is resting comfortably in bed. He was asleep, and I did not wake him for my visit. His nurses report no issues with him. RESPIRATIONS: Appear nonlabored. EXTREMITIES: He is moving all 4 extremities. ASSESSMENT: 1. Status post ground-level fall. 2. Status post open reduction and internal fixation of right femoral shaft fracture. 3. Status post acute respiratory distress, postoperative, requiring re-intubation, resolved. 4. History of alcohol abuse and hypertension, stable. 5. Acute adrenal insufficiency, stable. PLAN: Plan will be to continue supportive care. Work with Case Management on placement and await final placement decision. Job ID: [id number]
[2019-07-08] MEDS: Ferrous Sulfate 325 MG TAB PO SCH (08:12)
[2019-07-08] MEDS: Ascorbic Acid 500 mg Chewable Tablet PO SCH (08:12)
[2019-07-08] MEDS: Oxazepam 10 MG CAP PO SCH (08:13)
[2019-07-08] MEDS: Thiamine 100 MG TAB PO SCH (08:13)
[2019-07-08] MEDS: Famotidine 20 MG TAB PO SCH (08:13)
[2019-07-08] MEDS: Amlodipine 5 MG TAB PO SCH (08:13)
[2019-07-08] MEDS: Polyethylene Glycol 3350 17 GM Packet PO SCH (08:13)
[2019-07-08] MEDS: Folic Acid 1 MG TAB PO SCH (08:13)
[2019-07-08] MEDS: Senokot S 8.6-50 MG TAB PO SCH (08:13)
[2019-07-08 08:18] LABS: #Eosinphils 0.1 thou/uL (0.0-0.7); #Monocytes 0.4 thou/uL (0.11-0.59); %Basophils 0.1 % (0.0-1.0); %Eosinophils 2.3 % (0.0-10.0); %Lymphocytes 14.7 % (21.0-51.0); %Monocytes 5.6 % (0.0-10.0); %Neutrophils 77.3 % (42.0-75.0); Hemoglobin 10.4 g/dL (14.0-18.0); Mean Corpuscular HGB CONC 33.2 g/dL (32.0-36.0); Mean Corpuscular Hemoglobin 34.7 pg (27.0-31.0); Mean Platelet Volume 7.8 fL (7.4-10.4); Platelet Count 217 thou/uL (130-400); RBC Distribution Width 11.7 % (11.5-14.5); Red Blood Cell (RBC) Count 2.99 mill/uL (4.70-6.10); White Blood Cell (WBC) Count 6.4 thou/uL (4.8-10.8)
[2019-07-08 08:37] LABS: Anion Gap 9 mmol/L (10-20); BUN (Urea Nitrogen) 17 mg/dL (8.4-25.7); Calc. Creatinine Clearance 52 mL/min (70-130); Calcium 8.4 mg/dL (7.8-10.44); Carbon Dioxide 30 mmol/L (23-31); Chloride 106 mmol/L (98-107); Estimated GFR-MDRD 89; Glucose 110 mg/dL (83-110); Potassium 3.6 mmol/L (3.5-5.1); Sodium 141 mmol/L (136-145)
[2019-07-08] MEDS ORDERED: Potassium Phosphate 15 MMOL in Sodium Chloride 0.9% 250 ML 250 ML IVPB SCH (09:00)
[2019-07-08 09:46] LABS: Magnesium 2.1 mg/dL (1.6-2.6); Phosphorus 3.2 mg/dL (2.3-4.7)
--- NOTE | 2019-07-08 11:06 | PQF ---
CLINICAL DOCUMENTATION IMPROVEMENT CLARIFICATION FORM: ICD-10 Updated PLEASE DO AN ADDENDUM TO THE PROGRESS NOTE WITH ANY DOCUMENTATION UPDATES OR ADDITIONS AND CARRY THROUGH TO DC SUMMARY. THANK YOU. Date: 07/08/2019 ATTN: Dr. Monsalve Please exercise your independent, professional judgment in responding to the clarification form. Clinical indicators are provided on the bottom of this form for your review Please check appropriate box(s): [ x ] Protein Calorie Malnutrition: [ x ] Mild [ ] Moderate [ ] Severe [ ] Other Malnutrition (please specify) [ ] Underweight without malnutrition [ ] Other diagnosis [ ] Unable to determine In addition, please specify: Present on Admission (POA): [ ] Yes [ ] No [ ] Unable to determine CLINICAL INDICATORS - SIGNS / SYMPTOMS / LABS / RESULTS AND LOCATION IN MR Inspector Brake Lining Assessment 07/03: BMI 16.0 Nutrition diagnosis: Malnutrition Related to alcohol abuse As evidenced By: 16.3% weight loss x 2-3 months, severe temporal and buccal fat pad wasting suggestive of severe malnutrition in the context of chronic illness. RISKS: H&P 07/02: 78 yo has a R proximal femoral shaft fracture. Hx of HTN and chronic alcohol abuse. TREATMENT: H&P 07/02: Plan: Enlive Ensure b.i.d. postop. Inspector Brake Lining Assessment for BMI 16.0 Moderate Malnutrition (in acute illness) Energy Intake: <75% of estimated energy requirement for > 7 days Weight Loss: 1-2%/1 week; 5%/ 1 month; 7.5%/3 months Other: mild body fat loss; mild muscle mass loss; mild fluid accumulation; Severe Malnutrition (in acute illness) Energy Intake: < 50% of estimated energy requirement for > 5 days Weight Loss: >1-2%/1 week; >5%/1 month; >7.5%/3 months Other: moderate body fat loss; moderate muscle mass loss; moderate- severe fluid accumulation; measurably reduced telehealth case manager strength Moderate Malnutrition (in chronic illness) Energy Intake: <75% of estimated energy requirement for >1 month Weight Loss: 5%/1 month; 7.5%/3 months; 10%/6 months; 20%/1 year Other: mild body fat loss; mild muscle mass loss; mild fluid accumulation Severe Malnutrition (in chronic illness) Energy Intake: <75% of estimated energy requirement for >1 month Weight Loss: >5%/1 month; >7.5%/3 months; >10%/6 months; >20%/1 year Other: severe body fat loss; severe muscle mass loss; severe fluid accumulation; measurably reduced telehealth case manager strength Thank you, Marianne (This form is maintained as a part of the permanent medical record) 2014 [employer]. All Rights Reserved Marianne Wolfe RN, BSN [email or web address] Office: [phone] [facility]ITAL[facility]
[2019-07-08 16:18] VITALS: BP 110/75; TEMP 97.5
--- NOTE | 2019-07-09 09:29 | EKG ---
Test Reason : FALL Blood Pressure : / mmHG Vent. Rate : 069 BPM Atrial Rate : 070 BPM P-R Int : 000 ms QRS Dur : 094 ms QT Int : 414 ms P-R-T Axes : 000 055 078 degrees QTc Int : 443 ms Normal sinus rhythm Abnormal ECG Tremor artifact Confirmed by MIRIAM FUNEZ, JUVENTINO Simon ([id number]), editorial writer PETE CHAMPAGNE ([id number]) on 07/09/2019 9:29:20 AM Referred By: MIRIAM Confirmed By:JUVENTINO PINEDA MD
--- NOTE | 2019-07-11 11:12 | DIS ---
DATE OF ADMISSION: 07/03/2019 DATE OF DISCHARGE: 07/08/2019 ADMISSION DIAGNOSES: 1. Status post ground level fall. 2. Right proximal femur fracture. 3. History of alcohol abuse. 4. Hypertension. DISCHARGE DIAGNOSES: 1. Status post ground level fall. 2. Right proximal femur fracture, status post intramedullary nail of right femur fracture. 3. Acute respiratory distress, post surgery, resolved. 4. Renal insufficiency, improved. 5. History of alcohol abuse and hypertension, stable. HOSPITAL COURSE: Mr. Hurley is an 78-year-old male, status post mechanical ground level fall. He sustained right hip fracture, right proximal femur fracture. He underwent intramedullary rodding of the right femur fracture. The patient tolerated the procedure well; however, postop, the patient developed acute respiratory distress, in which he was reintubated. The patient has been stable after 24- hour observation in ICU. He was extubated successfully and has been stable since. He tolerated with regular diet. Vital signs stable. He has been discharged to rehabilitation facility. PHYSICAL EXAMINATION: GENERAL: Currently, the patient is alert and awake. GCS 15. VITAL SIGNS: Temperature 97.4, heart rate 80, respiratory rate 18, O2 saturation 97% on room air, and blood pressure 130/74. LUNGS: Clear bilaterally. HEART: Regular rate and rhythm. ABDOMEN: Soft, nondistended. EXTREMITIES: Neurovascularly intact x4. NEUROLOGY: No focal neurology deficits. DISCHARGE DISPOSITION: Rehabilitation facility. DISCHARGE CONDITION: Fair. DISCHARGE INSTRUCTIONS: The patient is to take medication as directed. The patient is to continue working with Physical Therapy and Occupational Therapy. He will see Dr. Cardona in 2 weeks. The patient is to continue DVT prophylaxis and continue alcohol withdrawal treatment with . DISCHARGE MEDICATIONS: 1. Clonidine. 2. Restoril. 3. Senokot. 4. MiraLAX. 5. Serax. 6. Folic acid. 7. Ferrous sulfate. 8. Famotidine. 9. Lovenox. 10. Dulcolax. 11. Vitamin C. 12. Amlodipine. 13. Tylenol. Job ID: [id number] [facility]
== END 2019-07-08 16:39 | DRG 480 ==
LOC: ERS 20:15 → SURG A 21:26 → CCU 07-04 16:52 → SURG A 07-06 17:50
PROVIDERS: ADMIT Specialist; ATTEND Specialist
PROC: 0QS804Z Reposition Right Femoral Shaft with Internal Fixation Device, Open Approach (ICD-10-PCS; principal; 2019-07-04)
DX: S72.391A Other fracture of shaft of right femur, initial encounter for closed fracture (principal); J95.821 Acute postprocedural respiratory failure; E87.1 Hypo-osmolality and hyponatremia; E27.40 Unspecified adrenocortical insufficiency; E44.1 Mild protein-calorie malnutrition; Z68.1 Body mass index [BMI] 19.9 or less, adult; W19.XXXA Unspecified fall, initial encounter; F10.229 Alcohol dependence with intoxication, unspecified; I10 Essential (primary) hypertension; Y93.9 Activity, unspecified; Y92.9 Unspecified place or not applicable; Y99.9 Unspecified external cause status; Z88.0 Allergy status to penicillin
CPT/HCPCS: 36415; 36416; 51702; 70450; 71045; 72170; 76000; 80048; 80053; 80306; 80307; 81003; 81015; 82533; 82553; 82805; 83735; 84100; 84484; 85007; 85025; 85027; 85610; 85730; 93005; 93010; 93306; 94002; 94003; 94760; C1713; C1769; J1100; J1650; J1720; J2001; J2060; J2250; J2270; J2310; J2370; J2405; J2704; J3010; J3475; J3480; J3490; J7050; S0020